=== PATIENT | male | born 1985 | race Caucasian/White ===

== ENCOUNTER 2017-02-12 17:35 | Emergency (ER) | payer MEDICARE ==
[~2017-02-12] VITALS: Ht 175.3 cm; Wt 115.9 kg
[~2017-02-12 17:35] MED LIST: ASPI-621 PO; ATOR40TA78 PO; CITA40TA12 PO; DEXT10TA7 PO; HYDR25CA PO; HYDR25TA11 PO; LAMO200T3 PO; LEVE500T53 PO; MIRT30TA PO; NICO1PAT5 TD; QUET100T4 PO; QUET300T5 PO; QUET50TA PO; VENL75CA PO; ZIPR40CA2 PO; ZIPR80CA2 PO
[2017-02-12 17:39] VITALS: BP 148/83
[2017-02-12] MEDS ORDERED: LIDOCAINE 1%-EPI 1:100K, 20ML SQ ONE (18:00)
== END 2017-02-12 18:27 | disposition home or self-care (01) ==
LOC: ED 18:02
DX: L02.01 Cutaneous abscess of face (principal); L73.1 Pseudofolliculitis barbae; F41.1 Generalized anxiety disorder; F31.9 Bipolar disorder, unspecified
CPT/HCPCS: 10160

== ENCOUNTER 2017-03-27 13:34 | Emergency (ER) | payer MEDICARE ==
[~2017-03-27] VITALS: Ht 175.3 cm; Wt 116.0 kg
[2017-03-27] MEDS ORDERED: HYDROcodone/APAP 5/325 TABLET ONE (16:00)
[2017-03-27] MEDS ORDERED: HYDROcodone/APAP 5/325 TABLET PO ONE (16:00)
[2017-03-27 17:25] VITALS: BP 134/78
== END 2017-03-27 18:00 | disposition home or self-care (01) ==
LOC: ED 14:59
DX: M79.651 Pain in right thigh (principal)
CPT/HCPCS: 99284

== ENCOUNTER 2017-06-13 17:57 | Emergency (ER) | payer MEDICARE ==
[~2017-06-13] VITALS: Ht 175.3 cm; Wt 114.2 kg
[2017-06-13 17:58] VITALS: BP 139/82
== END 2017-06-13 20:18 | disposition home or self-care (01) ==
LOC: ED 20:15
DX: S83.91XA Sprain of unspecified site of right knee, initial encounter (principal); X50.1XXA Overexertion from prolonged static or awkward postures, initial encounter; Y93.01 Activity, walking, marching and hiking; Y92.89 Other specified places as the place of occurrence of the external cause; Y99.9 Unspecified external cause status
CPT/HCPCS: 99284

== ENCOUNTER 2018-01-19 16:02 | Emergency (ER) | payer MEDICARE ==
[~2018-01-19] VITALS: Ht 175.3 cm; Wt 109.0 kg
[~2018-01-19 16:02] MED LIST changes: +NICO-487 TD; -NICO1PAT5 TD; +TRAZ100T15 PO
[2018-01-19 16:14] VITALS: BP 118/65
== END 2018-01-19 18:41 | disposition home or self-care (01) ==
LOC: ED 16:30
DX: S60.221A Contusion of right hand, initial encounter (principal); X58.XXXA Exposure to other specified factors, initial encounter; Y93.89 Activity, other specified; Y92.89 Other specified places as the place of occurrence of the external cause; Y99.9 Unspecified external cause status
CPT/HCPCS: 99284

== ENCOUNTER 2018-02-05 01:28 | Observation (INO) | payer MEDICARE ==
[~2018-02-05] VITALS: Ht 177.8 cm; Wt 85.0 kg
[2018-02-05] MEDS ORDERED: GABA300C10 PO (02:12)
[2018-02-05] MEDS ORDERED: PRAZ2CAP2 PO (02:12)
[2018-02-05] MEDS ORDERED: ZIPRASIDONE 20 MG INJ IM ONE ×2 (02:33→03:00)
[2018-02-05 02:56] LABS: BASOPHILS # (AUTO) 0.04 x10^3/uL (0-0.1); BASOPHILS % (AUTO) 0 % (0-1); EOSINOPHILS # (AUTO) 0.05 x10^3/uL (0-0.4); EOSINOPHILS % (AUTO) 1 % (1-7); LYMPHOCYTES # (AUTO) 1.96 x10^3/uL (1-3.4); LYMPHOCYTES % (AUTO) 20 % (22-44); MD NO; MEAN CORPUSCULAR HEMOGLOBIN 30.8 pg (27.5-34.5); MEAN CORPUSCULAR HGB CONC 34.3 g/dL (33.2-36.2); MEAN CORPUSCULAR VOLUME 89.8 fL (81-97); MEAN PLATELET VOLUME 8.9 fL (7.4-10.4); MONOCYTES # (AUTO) 0.85 x10^3/uL (0.2-0.8); MONOCYTES % (AUTO) 9 % (2-9); NEUTROPHILS # (AUTO) 6.93 x10^3/uL (1.8-6.8); NEUTROPHILS % (AUTO) 71 % (42-75); PLATELET COUNT 300 x10^3/uL (130-400); RED BLOOD COUNT 5.42 x10^6/uL (4.38-5.82)
[2018-02-05 03:03] LABS: AMPHETAMINE SCREEN, URINE Positive (Negative); BARBITURATE SCREEN, URINE Negative (Negative); BENZODIAZEPINE SCREEN, URINE Negative (Negative); CANNABINOID SCREEN, URINE Positive (Negative); COCAINE SCREEN, URINE Negative (Negative); METHADONE SCREEN, URINE Negative (Negative); OPIATE SCREEN, URINE Negative (Negative)
[2018-02-05 03:06] LABS: ALANINE AMINOTRANSFERASE 38 U/L (12-78); ALBUMIN 4.2 g/dL (3.4-5.0); ANION GAP 7 mmol/L (5-15); CALCIUM 9.4 mg/dL (8.5-10.1); CHLORIDE 109 mmol/L (98-107); CREATININE 1.11 mg/dL (0.7-1.3)
[2018-02-05 03:09] LABS: ALKALINE PHOSPHATASE 102 U/L (45-117); BILIRUBIN,TOTAL 0.6 mg/dL (0.2-1.0)
[2018-02-05 03:12] LABS: SALICYLATE LEVEL < 1.7 mg/dL (2.8-20.0)
[2018-02-05 03:14] LABS: ACETAMINOPHEN < 2 mcg/mL (10-30)
[2018-02-05] MEDS ORDERED: LORazepam 0.5MG TABLET ONE (12:00)
[2018-02-05] MEDS ORDERED: ONDANSETRON ODT 4 MG PO PRN (12:00)
[2018-02-05] MEDS: LORazepam 1MG TABLET PO PRN ×2 (12:02→21:45)
[2018-02-05] MEDS ORDERED: GABAPENTIN 300 MG CAPSULE ONE (13:35)
[2018-02-05] MEDS: GABAPENTIN 300 MG CAPSULE PO SCH ×3 (13:36→20:29)
[2018-02-05 19:51] VITALS: BP 139/90
[2018-02-05] MEDS: PRAZOSIN 2 MG CAPSULE PO SCH (20:29)
[2018-02-05] MEDS: TRAZODONE 100MG TABLET PO SCH (20:30)
[2018-02-05] MEDS: ZIPRASIDONE 40MG CAPSULE PO SCH ×2 (20:30→21:00)
[2018-02-06] MEDS: GABAPENTIN 300 MG CAPSULE PO SCH ×4 (08:36→20:38)
[2018-02-06] MEDS: ZIPRASIDONE 40MG CAPSULE PO SCH ×2 (08:38→20:38)
[2018-02-06 08:44] VITALS: BP 115/72
[2018-02-06 19:41] VITALS: BP 109/60
[2018-02-06] MEDS: TRAZODONE 100MG TABLET PO SCH (20:38)
[2018-02-06 21:35] VITALS: BP 110/68
[2018-02-06] MEDS: PRAZOSIN 2 MG CAPSULE PO SCH (21:37)
[2018-02-07 08:25] VITALS: BP 107/56
[2018-02-07] MEDS: GABAPENTIN 300 MG CAPSULE PO SCH ×4 (08:45→20:36)
[2018-02-07] MEDS: ZIPRASIDONE 40MG CAPSULE PO SCH ×2 (08:45→20:36)
[2018-02-07] MEDS: LORazepam 1MG TABLET PO PRN (08:46)
[2018-02-07] MEDS ORDERED: LORazepam 1MG TABLET PO ONE (18:30)
[2018-02-07 20:00] VITALS: BP 108/73
[2018-02-07] MEDS: TRAZODONE 100MG TABLET PO SCH (20:35)
[2018-02-07] MEDS: PRAZOSIN 2 MG CAPSULE PO SCH (20:36)
[2018-02-08 07:00] VITALS: BP 107/70
[2018-02-08] MEDS: ZIPRASIDONE 40MG CAPSULE PO SCH ×2 (08:51→20:07)
[2018-02-08] MEDS: GABAPENTIN 300 MG CAPSULE PO SCH ×4 (08:51→20:07)
[2018-02-08] MEDS: LORazepam 1MG TABLET PO PRN ×2 (12:54→17:44)
[2018-02-08 19:34] VITALS: BP 100/59
[2018-02-08] MEDS: TRAZODONE 100MG TABLET PO SCH (20:07)
[2018-02-08] MEDS: PRAZOSIN 2 MG CAPSULE PO SCH (20:10)
[2018-02-09] MEDS: GABAPENTIN 300 MG CAPSULE PO SCH ×4 (07:21→20:29)
[2018-02-09 07:47] VITALS: BP 100/66
[2018-02-09] MEDS: ZIPRASIDONE 40MG CAPSULE PO SCH ×2 (08:01→20:28)
[2018-02-09 19:33] VITALS: BP 107/57
[2018-02-09] MEDS: TRAZODONE 100MG TABLET PO SCH (20:29)
[2018-02-09] MEDS: PRAZOSIN 2 MG CAPSULE PO SCH (20:29)
[2018-02-09 20:35] VITALS: BP 108/72
[2018-02-09 20:37] VITALS: BP 115/72
[2018-02-10] MEDS: GABAPENTIN 300 MG CAPSULE PO SCH ×4 (07:43→20:46)
[2018-02-10] MEDS: ZIPRASIDONE 40MG CAPSULE PO SCH (08:13)
[2018-02-10 08:19] VITALS: BP 100/47
[2018-02-10 19:41] VITALS: BP 105/66
[2018-02-10] MEDS: PRAZOSIN 2 MG CAPSULE PO SCH (20:46)
[2018-02-10] MEDS: ZIPRASIDONE 20MG CAPSULE PO SCH (20:46)
[2018-02-10] MEDS: TRAZODONE 100MG TABLET PO SCH (20:46)
[2018-02-10] MEDS ORDERED: ZIPRASIDONE 20MG CAPSULE PO SCH (21:00)
[2018-02-11] MEDS: GABAPENTIN 300 MG CAPSULE PO SCH ×5 (06:00→20:48)
[2018-02-11 08:03] VITALS: BP 109/68
[2018-02-11] MEDS: ZIPRASIDONE 20MG CAPSULE PO SCH ×2 (08:04→20:49)
[2018-02-11 19:44] VITALS: BP 109/69
[2018-02-11] MEDS: TRAZODONE 100MG TABLET PO SCH (20:48)
[2018-02-11] MEDS: PRAZOSIN 2 MG CAPSULE PO SCH (20:48)
[2018-02-12 08:00] VITALS: BP 95/57
[2018-02-12] MEDS: GABAPENTIN 300 MG CAPSULE PO SCH ×4 (08:19→20:42)
[2018-02-12] MEDS: ZIPRASIDONE 20MG CAPSULE PO SCH ×2 (08:19→20:43)
[2018-02-12] MEDS: LORazepam 1MG TABLET PO PRN (10:34)
[2018-02-12] MEDS: PRAZOSIN 2 MG CAPSULE PO SCH (20:42)
[2018-02-12] MEDS: TRAZODONE 100MG TABLET PO SCH (20:42)
[2018-02-12 21:07] VITALS: BP 119/63
[2018-02-13] MEDS: LORazepam 1MG TABLET PO PRN ×6 (02:05→22:39)
[2018-02-13] MEDS: GABAPENTIN 300 MG CAPSULE PO SCH ×4 (06:11→21:31)
[2018-02-13 08:47] VITALS: BP 112/65
[2018-02-13] MEDS: ZIPRASIDONE 20MG CAPSULE PO SCH ×2 (08:51→21:32)
[2018-02-13] MEDS: BISACODYL 10 MG SUPP PR PRN (14:40)
[2018-02-13 19:45] VITALS: BP 111/75
[2018-02-13] MEDS: PRAZOSIN 2 MG CAPSULE PO SCH (21:32)
[2018-02-13 22:00] VITALS: BP 119/76
[2018-02-13] MEDS: TRAZODONE 100MG TABLET PO SCH (22:01)
[2018-02-14] MEDS: GABAPENTIN 300 MG CAPSULE PO SCH ×4 (07:30→21:56)
[2018-02-14] MEDS: POLYETHYLENE GLYCOL 17 GM PACKET PO SCH (07:30)
[2018-02-14] MEDS: ZIPRASIDONE 20MG CAPSULE PO SCH ×2 (07:30→21:56)
[2018-02-14] MEDS: LORazepam 1MG TABLET PO PRN ×2 (13:01→20:12)
[2018-02-14 20:09] VITALS: BP 120/73
[2018-02-14] MEDS: TRAZODONE 100MG TABLET PO SCH (21:55)
[2018-02-14] MEDS: PRAZOSIN 2 MG CAPSULE PO SCH (21:55)
[2018-02-15] MEDS: POLYETHYLENE GLYCOL 17 GM PACKET PO SCH (08:09)
[2018-02-15] MEDS: GABAPENTIN 300 MG CAPSULE PO SCH ×4 (08:10→20:12)
[2018-02-15] MEDS: ZIPRASIDONE 20MG CAPSULE PO SCH ×2 (08:10→20:12)
[2018-02-15 08:50] VITALS: BP 109/70
[2018-02-15] MEDS: LORazepam 1MG TABLET PO PRN ×2 (09:10→16:52)
[2018-02-15] MEDS: PRAZOSIN 2 MG CAPSULE PO SCH (20:12)
[2018-02-15] MEDS: TRAZODONE 100MG TABLET PO SCH (20:13)
[2018-02-15 20:19] VITALS: BP 125/70
[2018-02-16] MEDS: GABAPENTIN 300 MG CAPSULE PO SCH ×4 (07:27→20:47)
[2018-02-16] MEDS: ZIPRASIDONE 20MG CAPSULE PO SCH ×2 (07:28→16:15)
[2018-02-16] MEDS: LORazepam 1MG TABLET PO PRN ×3 (07:40→20:48)
[2018-02-16] MEDS: POLYETHYLENE GLYCOL 17 GM PACKET PO SCH (07:58)
[2018-02-16 08:04] VITALS: BP 111/73
[2018-02-16 16:14] VITALS: BP 114/75
[2018-02-16 19:50] VITALS: BP 139/84
[2018-02-16] MEDS: PRAZOSIN 2 MG CAPSULE PO SCH (20:47)
[2018-02-16] MEDS: TRAZODONE 100MG TABLET PO SCH (20:48)
[2018-02-17] MEDS: GABAPENTIN 300 MG CAPSULE PO SCH ×4 (06:04→20:16)
[2018-02-17] MEDS: LORazepam 1MG TABLET PO PRN ×3 (06:12→20:52)
[2018-02-17] MEDS: POLYETHYLENE GLYCOL 17 GM PACKET PO SCH (07:38)
[2018-02-17] MEDS: ZIPRASIDONE 20MG CAPSULE PO SCH ×2 (07:39→16:53)
[2018-02-17 08:21] VITALS: BP 110/71
[2018-02-17 19:55] VITALS: BP 126/72
[2018-02-17] MEDS: PRAZOSIN 2 MG CAPSULE PO SCH (20:16)
[2018-02-17] MEDS: TRAZODONE 100MG TABLET PO SCH (20:16)
[2018-02-17] MEDS: BISACODYL 10 MG SUPP PR PRN (20:25)
[2018-02-18] MEDS: LORazepam 1MG TABLET PO PRN ×2 (04:55→13:20)
[2018-02-18] MEDS: GABAPENTIN 300 MG CAPSULE PO SCH ×4 (04:55→20:03)
[2018-02-18] MEDS: POLYETHYLENE GLYCOL 17 GM PACKET PO SCH (07:41)
[2018-02-18] MEDS: ZIPRASIDONE 20MG CAPSULE PO SCH (07:41)
[2018-02-18 08:31] VITALS: BP 111/74
[2018-02-18] MEDS ORDERED: ZIPRASIDONE 20MG CAPSULE PO SCH (16:30)
[2018-02-18 19:32] VITALS: BP 114/69
[2018-02-18] MEDS: PRAZOSIN 2 MG CAPSULE PO SCH (20:03)
[2018-02-18] MEDS: TRAZODONE 100MG TABLET PO SCH (20:03)
== END 2018-02-19 02:09 ==
LOC: ED 02:03 → EDIP 11:46 → 2N 13:36 → 3E 02-11 17:47
PROVIDERS: ADMIT Internal Medicine; ATTEND Internal Medicine
DX: F15.20 Other stimulant dependence, uncomplicated (principal); F23 Brief psychotic disorder; R45.851 Suicidal ideations; F20.0 Paranoid schizophrenia; F31.9 Bipolar disorder, unspecified; F12.10 Cannabis abuse, uncomplicated; E78.5 Hyperlipidemia, unspecified; I10 Essential (primary) hypertension; I25.2 Old myocardial infarction; F17.200 Nicotine dependence, unspecified, uncomplicated; Z82.49 Family history of ischemic heart disease and other diseases of the circulatory system; Z91.5 Personal history of self-harm; Z83.3 Family history of diabetes mellitus
CPT/HCPCS: 36415; 80053; 80307; 80329; 85025; 93005; 96372; 99285; G0378; J3486; G0480

== ENCOUNTER 2018-03-28 16:48 | Emergency (ER) | payer MEDICARE ==
[~2018-03-28] VITALS: Ht 175.3 cm; Wt 106.6 kg
[~2018-03-28 16:48] MED LIST changes: +GABA300C10 PO; +PRAZ2CAP2 PO
[2018-03-28 16:49] VITALS: BP 137/83
[2018-03-28] MEDS ORDERED: SODIUM CHLORIDE FLUSH 10ML SYR IVF ONE (17:00)
[2018-03-28 17:46] LABS: BASOPHILS # (AUTO) 0.03 x10^3/uL (0-0.1); BASOPHILS % (AUTO) 0 % (0-1); EOSINOPHILS # (AUTO) 0.21 x10^3/uL (0-0.4); EOSINOPHILS % (AUTO) 3 % (1-7); LYMPHOCYTES # (AUTO) 2.52 x10^3/uL (1-3.4); LYMPHOCYTES % (AUTO) 34 % (22-44); MD NO; MEAN CORPUSCULAR HEMOGLOBIN 30.6 pg (27.5-34.5); MEAN CORPUSCULAR VOLUME 89.9 fL (81-97); MEAN PLATELET VOLUME 9.7 fL (7.4-10.4); MONOCYTES # (AUTO) 0.52 x10^3/uL (0.2-0.8); MONOCYTES % (AUTO) 7 % (2-9); NEUTROPHILS # (AUTO) 4.21 x10^3/uL (1.8-6.8); NEUTROPHILS % (AUTO) 56 % (42-75); PLATELET COUNT 217 x10^3/uL (130-400); RED BLOOD COUNT 5.53 x10^6/uL (4.38-5.82); RED CELL DISTRIBUTION WIDTH 13.1 % (9.4-14.8)
[2018-03-28 17:50] LABS: ANION GAP 5 mmol/L (5-15); CALCIUM 8.6 mg/dL (8.5-10.1); CHLORIDE 105 mmol/L (98-107)
[2018-03-28 17:53] LABS: ALANINE AMINOTRANSFERASE 25 U/L (12-78); ALKALINE PHOSPHATASE 100 U/L (45-117); BILIRUBIN,TOTAL 0.3 mg/dL (0.2-1.0); CREATININE 1.05 mg/dL (0.7-1.3); TOTAL PROTEIN 7.7 g/dL (6.4-8.2)
== END 2018-03-28 19:22 | disposition left against medical advice (07) ==
LOC: ED 19:16
DX: R10.9 Unspecified abdominal pain (principal); Z53.21 Procedure and treatment not carried out due to patient leaving prior to being seen by health care provider
CPT/HCPCS: 36415; 80053; 83690; 85025

== ENCOUNTER 2019-01-10 20:09 | Emergency (ER) | payer MEDICARE ==
[~2019-01-10] VITALS: Ht 175.3 cm; Wt 114.3 kg
[~2019-01-10 20:09] MED LIST changes: -ASPI-621 PO; +ASPI81TA45 PO; +TRAZ-137 PO; -TRAZ100T15 PO
[2019-01-10 20:12] VITALS: BP 150/89
[2019-01-10] MEDS ORDERED: LORazepam 1MG TABLET ONE (20:56)
[2019-01-10] MEDS ORDERED: LORazepam 1MG TABLET PO ONE (21:00)
== END 2019-01-10 21:40 | disposition home or self-care (01) ==
LOC: ED 21:24
DX: F41.9 Anxiety disorder, unspecified (principal); F20.9 Schizophrenia, unspecified; F31.9 Bipolar disorder, unspecified; Z88.0 Allergy status to penicillin; Z88.8 Allergy status to other drugs, medicaments and biological substances; Z91.010 Allergy to peanuts